=== PATIENT | female | born 1960 | race Caucasian/White ===

== ENCOUNTER 2017-07-05 15:22 | Day surgery (SDC) | payer BC ==
[~2017-07-05 15:22] MED LIST: Dexamethasone 20 MG/5 ML VIAL ONE; Glycopyrrolate 0.2 MG/ML 5 ML SYRINGE ONE; Ketorolac Tromethamine 30 MG/ML VIAL ONE; Lidocaine 1% PF 5 ML VIAL ONE; Ondansetron HCl/PF 4 MG/2 ML Vial ONE; PHENYLEPHRINE-NS 100 MCG/ML 10 ML SYRINGE ONE; Propofol 200 MG/20 ML VIAL ONE; Succinylcholine Chloride 20 MG/ML 10 ml SYRINGE FS ONE
[2017-07-05] MEDS ORDERED: Ondansetron ODT 4 MG TAB ONE (15:35)
[2017-07-05] MEDS ORDERED: Promethazine HCl 25 MG/ML VIAL ONE (15:46)
[2017-07-05] MEDS ORDERED: Iopamidol 370 76% 100 ML VIAL ONE (15:46)
[2017-07-05 16:06] LABS: #Lymphocytes 0.5 thou/uL (1.20-3.40); #Monocytes 0.6 thou/uL (0.11-0.59); %Basophils 0.3 % (0.0-1.0); %Lymphocytes 4.4 % (21.0-51.0); %Monocytes 5.7 % (0.0-10.0); %Neutrophils 89.6 % (42.0-75.0); Mean Corpuscular HGB CONC 33.8 g/dL (32.0-36.0); Mean Corpuscular Hemoglobin 31.4 pg (27.0-31.0); Mean Corpuscular Volume 92.9 fl (81.0-99.0); Mean Platelet Volume 6.3 fL (7.4-10.4); Platelet Count 187 thou/uL (130-400); RBC Distribution Width 10.7 % (11.5-14.5); Red Blood Cell (RBC) Count 4.15 mill/uL (4.20-5.40); White Blood Cell (WBC) Count 11.1 thou/uL (4.8-10.8)
[2017-07-05 16:30] LABS: ALT (SGPT) 19 U/L (8-55); AST (SGOT) 20 U/L (5-34); Albumin 4.3 g/dL (3.5-5.0); Alkaline Phosphatase 58 U/L (40-150); Anion Gap 15 mmol/L (10-20); BUN (Urea Nitrogen) 11 mg/dL (9.8-20.1); Bilirubin, Total 0.7 mg/dL (0.2-1.2); Calc. Creatinine Clearance 0 mL/min (70-130); Calcium 9.8 mg/dL (7.8-10.44); Carbon Dioxide 23 mmol/L (22-29); Chloride 105 mmol/L (98-107); Estimated GFR-MDRD 75; Globulin 2.8 g/dL (2.4-3.5); Glucose 131 mg/dL (70-105); Lipase 21 U/L (8-78); Potassium 3.7 mmol/L (3.5-5.1); Protein, Total 7.1 g/dL (6.0-8.3); Sodium 139 mmol/L (136-145)
[2017-07-05] MEDS ORDERED: Ondansetron HCl/PF 4 MG/2 ML Vial ONE (17:29)
[2017-07-05] MEDS ORDERED: Morphine 4 MG/ML Carpuject ONE (19:27)
[2017-07-05] MEDS ORDERED: Sodium Chloride 0.9% 100 ML ONE (19:28)
[2017-07-05] MEDS ORDERED: Meropenem 1 GM VIAL ONE (19:28)
[2017-07-05] MEDS ORDERED: Bupivacaine/Epinephrine 0.25% 30 ML VIAL ONE (20:08)
--- NOTE | 2017-07-05 20:12 | CT ---
CT ABDOMEN AND PELVIS WITH ORAL AND IV CONTRAST: History: Right lower quadrant abdominal pain. FINDINGS: The lung bases are clear. The liver, pancreas, adrenal glands, and right kidney are normal. There are calcified granulomas in the spleen. There are cysts and cortical scarring in the left kidney. No terrie cified gallstones are seen. No free air or lymphadenopathy seen in the abdomen or pelvis. There is a fluid filled dilated appendix with appendicolith and periappendiceal changes. This is consistent with appendicitis. There are vascular calcifications without evidence aneurysm or rotation of the abdominal aorta. The u terus and ovaries are present. There are dilated vessels in the pelvis suggestive of pelvic congestiv e syndrome. There are degenerative changes of the spine. IMPRESSION: Acute appendicitis. Findings discussed over the telephone with ER physician, Dr. Nomi Robles, at 6:59 p.m. POS: [facility]
[2017-07-05] MEDS ORDERED: Morphine 4 MG/ML VIAL ONE (20:52)
[2017-07-05] MEDS ORDERED: Fentanyl 100 MCG/2 ML VIAL ONE (20:52)
--- NOTE | 2017-07-05 21:35 | HP ---
DATE: 07/05/2017 CHIEF COMPLAINT: Appendicitis. HISTORY OF PRESENT ILLNESS: This is a 57-year-old white female with a history of pain and the diffus ed abdomen became more localized to the right lower quadrant, described as sharp, 8/10, does not radi ate, associated with nausea and some vomiting. She never had this pain before. No history of chroni c abdominal pain or inflammatory bowel disease. CT scan at [facility] reveals acute appendicitis. PAST MEDICAL HISTORY: Hyperlipidemia. PAST SURGICAL HISTORY: . MEDICINES TAKEN DAILY: Includes atorvastatin, levothyroxine. ALLERGIES: No known drug allergies. SOCIAL HISTORY: No smoking, alcohol or other drugs. REVIEW OF SYSTEMS: Ten system review of systems otherwise negative unless described above. PHYSICAL EXAMINATION: HEENT: Sclerae are anicteric. Oropharynx clear. NECK: No lymphadenopathy. CHEST: Clear. HEART: Regular rate and rhythm. ABDOMEN: Soft, tender in the right lower quadrant, localized guarding, no rebound, no abdominal or i nguinal hernias. EXTREMITIES: No ischemia or edema to extremities. LABORATORY AND X-RAY FINDINGS: White blood cell count is 11, creatinine 0.79. Liver function tests and lipase normal. CT scan shows acute appendicitis. ASSESSMENT: Acute appendicitis. PLAN: Laparoscopic appendectomy. Risks, benefits, alternatives discussed. She gives consent. We w ill do this today.
--- NOTE | 2017-07-06 03:33 | OP ---
DATE OF PROCEDURE: 07/05/2017 PREOPERATIVE DIAGNOSIS: Acute appendicitis. POSTOPERATIVE DIAGNOSIS: Acute appendicitis. PROCEDURE: Laparoscopic appendectomy. SURGEON: Gee Trejo M.D. ANESTHESIA: General. ESTIMATED BLOOD LOSS: Minimal. COMPLICATIONS: None. SPECIMEN: Appendix. FINDINGS: Appendicitis. TECHNIQUE: The patient was taken to the operating room and placed supine on the table. After genera l anesthetic was obtained, a Luis was placed. The abdomen was prepped and draped in a sterile fashi on. Curved incision was made below the umbilicus. Cautery was used to dissect down to and score the fascia. Abdominal cavity was entered bluntly using a Saira clamp. Holding stitch of PDS was placed on each side of the fascia. Sinclair trocar was placed. High-flow pneumoperitoneum was obtained. A suprapubic 5-mm port, a left lower quadrant 5-mm port were placed under direct visualization. The ce cum was rolled over to reveal acute appendicitis. A small window was made at the base of the appendi x in the mesoappendix. Laparoscopic stapler was fired across the base of the appendix. A vascular r eload was fired across the mesoappendix. The appendix was placed in an Endocatch bag and brought out through the Sinclair. There was no bleeding on the staple line. The right lower quadrant and pelvis was irrigated. There was no perforation. There was no damage to any intraabdominal structures. All port sites were infiltrated using local anesthetic. All ports were removed under direct visualizati on without bleeding. Pneumoperitoneum was let down. PDS was used to close the fascial defect below the umbilicus. All incisions were irrigated and closed using 4-0 Monocryl and Dermabond. The patien t went to recovery in stable condition. All instrument counts, needle counts, and lap counts were co rrect.
== END 2017-07-05 22:55 | disposition home or self-care (01) ==
LOC: SCSER 15:22 → SDC/OP 20:14
PROVIDERS: ATTEND Surgery
PROC: 0DTJ4ZZ Resection of Appendix, Percutaneous Endoscopic Approach (ICD-10-PCS; principal; 2017-07-05)
DX: K35.80 Unspecified acute appendicitis (principal); E78.5 Hyperlipidemia, unspecified; Z79.899 Other long term (current) drug therapy; Z98.890 Other specified postprocedural states
CPT/HCPCS: 74177; 80053; 83690; 85025; 86140; 88304; 96365; 96367; 96375; J1100; J1885; J2001; J2185; J2270; J2405; J2550; J2704; J3010; J7050; Q0162

== ENCOUNTER 2017-08-28 13:33 | Outpatient (CLI) | payer BC | END 2017-08-28 13:34 | disposition home or self-care (01) | LOC: BICRAD 13:33 | PROVIDERS: ATTEND Chiropractor | DX: M25.512 Pain in left shoulder (principal); M47.892 Other spondylosis, cervical region | CPT/HCPCS: 72052 ==